=== PATIENT | male | born 1950 | race Caucasian/White ===

== ENCOUNTER 2025-05-17 13:43 | Outpatient (CLI) | payer MEDICARE, BC, SELFPAY | END 2025-05-17 13:44 | disposition home or self-care (01) | LOC: AMB 05-18 15:09 | PROVIDERS: Visit Provider Family Medicine | DX: R41.82 Altered mental status, unspecified (principal); R73.9 Hyperglycemia, unspecified | CPT/HCPCS: A0998 ==